=== PATIENT | male | born 1975 | race Caucasian/White ===

== ENCOUNTER 2017-02-05 22:57 | Emergency (ER) | payer OTHER ==
[~2017-02-05] VITALS: Ht 180.3 cm; Wt 81.1 kg
[2017-02-06 00:10] LABS: INTER. NORMALIZED RATIO 1.2; PROTHROMBIN TIME 12.7 (9.2-11.2); PTT 29.2 (25-32)
[2017-02-06 00:15] LABS: CHLORIDE 104 mEq/L (99-109); HEMATOCRIT 22.1 % (38.0-50.0); MCH 18.6 PG (29.0-34.0); MCHC 25.8 G/DL (30.0-36.0); MCV 72.2 FL (86-99); NRBC (%) 0.2 /100 WBC (0-0); PLATELET COUNT 273 K/uL (156-360); POTASSIUM 3.1 mEq/L (3.7-5.4); RBC DIS.WIDTH-CV 20.8 % (11.8-14.6); RBC DIS.WIDTH-SD 53.1 % (39-53); RED BLOOD COUNT 3.06 M/uL (4.00-5.50); SODIUM 135 mEq/L (136-147); WHITE BLOOD COUNT 19.8 K/uL (4.1-10.2)
[2017-02-06 00:17] LABS: GLUCOSE 205 mg/dL (70-99)
[2017-02-06 00:18] LABS: ANION GAP 7 MEQ/L (2-14)
[2017-02-06 00:19] LABS: TOTAL BILIRUBIN 0.5 mg/dL (0.0-1.0)
[2017-02-06 00:20] LABS: ALKALINE PHOSPHATASE 63 IU/L (3-129)
[2017-02-06 00:21] LABS: GFR ESTIMATE (CALCULATED) > 59 mL/min/
[2017-02-06 00:22] LABS: UREA NITROGEN (BUN) 9 mg/dL (9-23)
[2017-02-06 00:24] LABS: LIPASE 7 U/L (1.0-51.0); TROP-I INTERPRETATION NEGATIVE; TROPONIN-I < 0.01 ng/mL (0.0-0.30)
[2017-02-06 00:24] LABS: ADD MIUA? YES; BILIRUBIN NEGATIVE; BLOOD SMALL; COLOR YELLOW ((YELLOW)); GLUCOSE (STRIP) NEGATIVE; KETONES NEGATIVE; LEUKOCYTES LARGE; NITRITE POSITIVE; PROTEIN (STRIP) 100; SPECIFIC GRAVITY 1.009 (1.000-1.030); UROBILINOGEN 0.2 MG/DL (0.2-1.0)
[2017-02-06 00:35] LABS: BACTERIA RARE /HPF; EPITHELIAL CELLS RARE /HPF; HYALINE CASTS 0-5 /LPF; MUCUS TRACE /LPF; UCUL ADDED? NO; WHITE BLOOD CELLS 40-50 /HPF (0-5)
[2017-02-06] MEDS ORDERED: TIZANIDINE HCL4 MG PO (00:38)
[2017-02-06] MEDS ORDERED: MS CONTIN,ORAMO60 MG PO (00:38)
[2017-02-06] MEDS ORDERED: CLONAZEPAM0.5 MG PO (00:38)
[2017-02-06] MEDS ORDERED: MORPHINE SULFAT30 M1 PO (00:38)
[2017-02-06] MEDS ORDERED: BACLOFEN20 MG PO (00:38)
[2017-02-06 01:19] VITALS: BP 125/67
[2017-02-06 01:38] VITALS: BP 96/70
[2017-02-06 02:05] VITALS: BP 109/64
[2017-02-06 02:06] VITALS: BP 109/64
[2017-02-06 02:33] VITALS: BP 104/64
[2017-02-06 03:10] VITALS: BP 121/65
== END 2017-02-06 03:12 | disposition short-term general hospital (02) ==
LOC: EME → EDBD 22:57 → EME 02-06 03:12
PROVIDERS: Emergency Medicine
PROC: 05HP33Z Insertion of Infusion Device into Right External Jugular Vein, Percutaneous Approach (ICD-10-PCS; principal; 2017-02-05)
DX: A41.9 Sepsis, unspecified organism (principal); M86.18 Other acute osteomyelitis, other site; D64.9 Anemia, unspecified; E87.6 Hypokalemia; E87.2 Acidosis; N30.21 Other chronic cystitis with hematuria; G82.20 Paraplegia, unspecified
CPT/HCPCS: 71010; 73590; 80053; 81003; 83605; 83690; 84484; 85027; 85610; 85730; 86900; 86901; 86920; 87040; 93005; 99281; 99285; J0696; J3010; J7050; P9016